=== PATIENT | female | born 1995 | race Two or more races ===

== ENCOUNTER 2019-06-14 12:47 | Inpatient (IN) | payer OTHER ==
[~2019-06-14] VITALS: Ht 162.6 cm; Wt 92.1 kg
[2019-06-19] MEDS ORDERED: PRENATABS FA T1 EACH PO (11:03)
[2019-06-19] MEDS ORDERED: FOLIC ACID20 MG PO (11:03)
[2019-06-24] MEDS ORDERED: FERROUS SULFAT325 M1 PO (13:52)
[2019-06-24] MEDS ORDERED: OXYC1TAB9 PO (13:53)
== END 2019-06-24 15:40 | disposition home or self-care (01) | DRG 785 ==
LOC: OB/GYN 06-21 09:58 → LDR 06-21 09:58 → OB/GYN 06-21 16:14
PROVIDERS: ADMIT Specialist
PROC: 0UB70ZZ Excision of Bilateral Fallopian Tubes, Open Approach (ICD-10-PCS; 2019-06-21)
PROC: 4A1HXCZ Monitoring of Products of Conception, Cardiac Rate, External Approach (ICD-10-PCS; 2019-06-21)
PROC: 10D00Z1 Extraction of Products of Conception, Low, Open Approach (ICD-10-PCS; principal; 2019-06-21 13:00)
DX: O82 Encounter for cesarean delivery without indication (principal); O34.211 Maternal care for low transverse scar from previous cesarean delivery; Z30.2 Encounter for sterilization; Z37.0 Single live birth; Z3A.39 39 weeks gestation of pregnancy